=== PATIENT | female | born 1965 | race Caucasian/White ===

== ENCOUNTER 2018-07-03 16:06 | Inpatient (IN) | payer MEDICARE, OTHER ==
[~2018-07-03] VITALS: Ht 170.2 cm; Wt 60.3 kg
[2018-07-03] MEDS ORDERED: FEE PK DOSING 1 MIN EA MC ONE (16:10)
--- NOTE | 2018-07-03 16:10 | NUR ---
PT BIBRA TO ER BED 06. PER REPORT PT WAS FOUND ALTERED, SCRUBBING FLOOR W/ BLEACH. USUALLY SPEAKS CITIZEN OF [place] BUT PER REPORT REVERT TO IRANIAN SPEAKING. PT ALSO HYPERTENSIVE AND TACHY TEACHER LEARNING DISABLED. PER SON HYSTORY OF PSYCHOSIS AND HYPERTENSION. GOWNED AND PLACED ON MONITOR. AWAITING MD KITCHEN.
--- NOTE | 2018-07-03 16:25 | NUR ---
DR MONROE AT BEDSIDE FOR EVAL.
[2018-07-03] MEDS ORDERED: NICARDIPINE IN DEXTROSE,ISO-OS 200 ML IV PRN (16:30)
[2018-07-03 16:56] LABS: BASOPHILS # (AUTO) 0.6 /CMM (0.0-0.2); BASOPHILS % (AUTO) 2.2 % (0.0-2.0); EOSINOPHILS % (AUTO) 0.1 % (0.0-6.0); HEMATOCRIT 49 % (33-45); HEMOGLOBIN 16.3 g/dL (11.5-14.8); LYMPHOCYTES # (AUTO) 1.3 /CMM (0.8-4.8); LYMPHOCYTES % (AUTO) 4.5 % (20.0-44.0); MEAN CORPUSCULAR HGB CONC 34 g/dl (31.0-36.0); MEAN CORPUSCULAR VOLUME 90 fL (82-100); MONOCYTES # (AUTO) 1.3 /CMM (0.1-1.30); MONOCYTES % (AUTO) 4.7 % (2.0-12.0); NEUTROPHILS # (AUTO) 24.9 /CMM (1.8-8.9); NEUTROPHILS % (AUTO) 88.5 % (43.0-81.0); PLATELET COUNT (AUTO) 335 /CMM (150-450); RED BLOOD CELL COUNT(AUTO) 5.41 MIL/uL (4.0-5.2); WHITE BLOOD COUNT (AUTO) 28.1 K/uL (4.3-11.0)
[2018-07-03] MEDS ORDERED: ONDANSETRON HCL/PF 4 MG/2 ML VIAL ONE (16:58)
--- NOTE | 2018-07-03 16:58 | NUR ---
PT TO RADIOLOGY FOR HEAD CT SCAN VIA [facility].
[2018-07-03 16:59] LABS: APPEARANCE,URINE Clear (CLEAR); BILIRUBIN,URINE Negative (NEGATIVE); BLOOD, URINE Small Ery/uL (NEGATIVE); COLOR,URINE Yellow (YELLOW); KETONES,URINE Negative (NEGATIVE); LEUKOCYTE ESTERASE ,URINE Negative (NEGATIVE); NITRITE, URINE Negative (NEGATIVE); PROTEIN,URINE Trace mg/dl (NEGATIVE); UGLUCOSE Negative (NEGATIVE); UROBILINOGEN,URINE 0.2 EU/dL (0.2)
--- NOTE | 2018-07-03 17:04 | NUR ---
PT VOMITED WHILE AT CT SCAN. DR MONROE MADE AWARE. ZOFRAN 4MG IVP GIVEN.
[2018-07-03 17:09] LABS: BACTERIA,URINE None seen /HPF (None Seen); SQUAMOUS EPITHELIAL CELL,UR Few /HPF (None Seen); WBC,URINE 0-2 /HPF (0-3)
[2018-07-03 17:10] LABS: CARBON DIOXIDE 26 mmol/L (21-32); CHLORIDE 96 mmol/L (98-107); CREATININE 1.1 mg/dL (0.6-1.3); GLUCOSE 104 mg/dL (74-106); POTASSIUM 3.7 mmol/L (3.5-5.1); SODIUM SERUM 131 mmol/L (136-145); UREA NITROGEN, BLOOD 12 mg/dL (7-18)
[2018-07-03 17:16] LABS: ALANINE AMINOTRANSFERASE 18 U/L (12-78); ALBUMIN 4.2 g/dL (3.4-5.0); ALKALINE PHOSPHATASE 83 U/L (46-116); ASPARTATE AMINOTRANSFERASE 24 U/L (15-37); BILIRUBIN,DIRECT 0.1 mg/dL (0.0-0.2); BILIRUBIN,TOTAL 0.4 mg/dL (0.2-1.0); TOTAL PROTEIN, SERUM 7.1 g/dL (6.4-8.2)
[2018-07-03 17:18] LABS: TROPONIN I 0.268 ng/mL (0.00-0.056)
[2018-07-03 17:19] LABS: INR 0.95 (0.85-1.15)
[2018-07-03] MEDS ORDERED: ONDANSETRON HCL/PF - ER 4 MG/2 ML VIAL IV ONE (17:30)
[2018-07-03 17:32] LABS: ABG BASE EXCESS -1.3 mmol/L; ABG OXYGEN SATURATION 86.7 % (92.0-98.5); ABG PCO2 34.8 mmHg (35.0-45.0); ABG PH 7.424 (7.350-7.450); ABG PO2 47.5 mmHg (75.0-100.0); COHb 6.2 % (0.5-1.5); MetHb 0.4 % (0.0-1.5); SITE, ABG Right Radial; VENT MODE, BG NASAL CANNULA
[2018-07-03 17:34] LABS: LYMPHOCYTES % (MANUAL) 12 % (16-48); MONOCYTES % (MANUAL) 4 % (0-11.0); NEUTROPHILS % (MANUAL) 84 (42-76)
--- NOTE | 2018-07-03 17:40 | NUR ---
ABG DONE PER MD ORDER AND REPORTED. MD ORDERED PT ON VENTI MASK @ 50%. SPO2 > 94%
[2018-07-03] MEDS ORDERED: NALOXONE PREFILLED SYRINGE 2 MG/2 ML SYRINGE ONE (17:42)
--- NOTE | 2018-07-03 17:42 | NUR ---
NARCAN 1 MG IVP GIVEN ORDERED, INCREASE WAKEFULNESS, TRIED TO GET UP FROM BED, DR MONROE AT BEDSIDE
[2018-07-03] MEDS ORDERED: DEXAMETHASONE SOD PHOSPHATE 10 MG/ML VIAL ONE (17:49)
[2018-07-03] MEDS ORDERED: DEXAMETHASONE SOD PHOSPHATE 10 MG/ML VIAL IV ONE (18:00)
[2018-07-03] MEDS ORDERED: IV NS 0.9% 1,000 ML BAG IV ONE ×2 (18:00→19:30)
[2018-07-03] MEDS ORDERED: VANCOMYCIN 1 GM in IV D5W 250 ML IV ONE (18:00)
[2018-07-03] MEDS ORDERED: CEFTRIAXONE 2 G in IV D5W 50 ML IV ONE (18:00)
--- NOTE | 2018-07-03 18:12 | NUR ---
DR MONROE BACK AT BEDSIDE FOR LUMBAR PUNCTURE. [employer] TO ASSIST.
--- NOTE | 2018-07-03 18:25 | NUR ---
DR MONROE BACK AT BEDSIDE FOR LUMBAR PUNCTURE TO R/O MENINGITIS
[2018-07-03 18:32] LABS: THYROID STIMULATING HORMONE 4.691 uIU/mL (0.358-3.74)
--- NOTE | 2018-07-03 18:42 | NUR ---
CALLED [employer] NEWS OPERATIONS MANAGER WAS PAGED.
--- NOTE | 2018-07-03 18:43 | NUR ---
DR MONROE MADE AWARE OF RECENT B/P CARDENE DRIP D/C'D PER DR MONROE VERBAL ORDER.
[2018-07-03 18:53] LABS: ACETAMINOPHEN < 2 ug/ml (10-30); ALCOHOL, BLOOD < 3 mg/dL (0-0)
[2018-07-03 19:00] LABS: SALICYLATE 5.2 mg/dL (2.8-20.0)
[2018-07-03] MEDS ORDERED: LEVOFLOXACIN 750 MG /D5W 150ML 750 MG in PREMIX 1 EA IV SCH (19:00)
[2018-07-03] MEDS ORDERED: ASPIRIN 300 MG/SUPP.RECT RC ONE ×2 (19:00→19:04)
[2018-07-03] MEDS ORDERED: NALOXONE HCL 0.4 MG/ML AMPUL IV ONE (19:00)
[2018-07-03] MEDS ORDERED: MIDAZOLAM HCL 2 MG/2ML VIAL IV ONE (19:00)
--- NOTE | 2018-07-03 19:04 | NUR ---
PAGED PSYCHIATRIC FOR PANEL - ORDER EXPEDITER DR. DELGADILLO
--- NOTE | 2018-07-03 19:05 | NUR ---
REPORT GIVEN TO CAROLINA GARG FOR MARGARETH.
--- NOTE | 2018-07-03 19:14 | NUR ---
REPORT RECIEVED FROM FRANCHESCA GARG FOR MARGARETH. AWAITING BED ASSIGNMENT.
--- NOTE | 2018-07-03 19:34 | NUR ---
PER DR MONROE, NO INDWELLING EVLEZ CATH
[2018-07-03 19:36] LABS: CSF GLUCOSE 63 mg/dL (40-70); CSF PROTEIN 55.5 mg/dL (15-45)
--- NOTE | 2018-07-03 19:37 | NUR ---
CALLED PHARMACY FOR NADJAUIN
--- NOTE | 2018-07-03 19:52 | NUR ---
PT HELPED ONTO BEDPAN BY EMT. REPORT GIVEN TO [facility] FOR ICU ADMISSION
--- NOTE | 2018-07-03 20:00 | NUR ---
WHEEL SETTER NOTE REPORT RECEIVED FROM ER NURSE JOSE
--- NOTE | 2018-07-03 20:25 | NUR ---
PT TRANSPORTED TO ICU RM 253 IN CRITICAL CONDITION VIA ACLS PROTOCOL WITH FAMILY AT BEDSIDE.
[2018-07-03 20:30] VITALS: BP 193/117
[2018-07-03] MEDS ORDERED: HALOPERIDOL LACTATE INJ 5 MG/ML VIAL IM PRN (20:30)
--- NOTE | 2018-07-03 20:30 | NUR ---
GAS MASK ASSEMBLER INITIAL NOTE RECEIVED PATIENT VIA [place] ANXIOUS, RESTLESS, DISHEVELED IN APPEARANCE. A/OX2, DENIES PAIN OR DISCOMFORT. NO RESPIRATORY DISTRESS NOTED. ON TELE MONITOR SINUS TACH. RESPIRATIONS EVEN AND UNLABORED ON OXYGEN AT 2LPMO2 VIA NC, SPO2 92%, O2 INCREASED TO 5LPM. WITH LEVAQUIN AND VANCOMYCIN RUNNING. ORIENTED PATIENT TO ROOM AND CALL LIGHT SYSTEM, PATIENT VERBALIZED UNDERSTANDING BUT STILL NEEDS FREQUENT REASSURANCE AND REMINDER. AFEBRILE. SIDE RAILS UP AND LOCKED. BED KEPT AT LOWEST POSITION. CALL LIGHT WITHIN EASY REACH. WILL CONTINUE TO MONITOR.
[2018-07-03] MEDS: PANTOPRAZOLE 40 MG VIAL IV SCH (20:36)
--- NOTE | 2018-07-03 20:54 | NUR ---
BLUE SPLIT TRIMMER NOTE NOTED PATIENT WITH URINARY URGENCY, BLADDER DISCOMFORT, NOTED WITH BLADDER DISTENTION, ANXIOUS, RESTLESS. DR. DELGADILLO INFORMED WITH ORDER TO INSERT VELEZ CATHETER. NOTED AND WILL CARRY OUT. WILL CONTINUE TO MONITOR.
[2018-07-03 21:00] VITALS: BP 180/112
--- NOTE | 2018-07-03 21:00 | NUR ---
QUALITY CONTROL HEAD NOTE VELEZ CATHETER INSERTED WITH 800ML OUTPUT. WILL CONTINUE TO MONITOR.
[2018-07-03 21:30] LABS: CALCIUM, SERUM 8.1 mg/dL (8.5-10.1); CREATININE 1.3 mg/dL (0.6-1.3); POTASSIUM 3.5 mmol/L (3.5-5.1)
--- NOTE | 2018-07-03 21:34 | NUR ---
CREDIT RESOLUTION REPRESENTATIVE NOTE PATIENT REMOVING LINES, AND MONITORING CABLES, FREQUENTLY REMINDED NOT TO REMOVE LINE AND CABLES, CLOSELY WATCHED. ATTEMPTING TO GET OUT OF BED DESPITE FREQUENT REMINDERS. PATIENT RESTLESS. PRN HALDOL IM GIVEN. WILL CONTINUE TO MONITOR.
[2018-07-03 21:36] LABS: ALBUMIN 3.8 g/dL (3.4-5.0); BILIRUBIN,DIRECT 0.2 mg/dL (0.0-0.2); BILIRUBIN,TOTAL 0.6 mg/dL (0.2-1.0); TOTAL PROTEIN, SERUM 6.7 g/dL (6.4-8.2)
--- NOTE | 2018-07-03 21:55 | NUR ---
EQUIPMENT HIRE MANAGER NOTE PATIENT REFUSED ABG. RELAYED LACTIC ACID 4.[address] DELGADILLO, STATES HE IS AWARE. WILL CONTINUE TO MONITOR.
--- NOTE | 2018-07-03 21:56 | NUR ---
DIE CASTING SUPERVISOR NOTE SON RALPH AND EX- AT BEDSIDE. SON PROVIDED ALL INFORMATION REGARDING HIS MOTHER. STATES HE WOULD LIKE HIS MOTHER TO BE FULL CODE. SON WAS ABLE TO PROVIDE MEDICATION LIST. PER SON PATIENT LOST HER FATHER 2 TO 3 YEARS AGO AND WAS HOSPITALIZED 2 TO 3 YEARS AGO FOR ATTEMPTING SUICIDE. PER SON PATIENT LIVES ALONE, HE'S NOT SURE IF PATIENT HAS BEEN TAKING HER MEDICATIONS REGULARLY, SON STATES HIS MOTHER HAS PERIODS OF CONSTANT PARANOIA. UPDATED SON ON PATIENTS CURRENT CONDITION, VERBALIZED UNDERSTANDING. WILL CONTINUE TO MONITOR.
[2018-07-03 22:00] VITALS: BP 178/106
--- NOTE | 2018-07-03 22:00 | NUR ---
FUNDER NOTE INFORMED MD PATIENTS MEDICATION LIST ADDED TO MED RECON.
--- NOTE | 2018-07-03 22:03 | NUR ---
PT REFUSE ABG, NO RESP DISTRESS. RN NOTIFIED.
[2018-07-03] MEDS ORDERED: HALO5TAB PO (22:06)
[2018-07-03] MEDS ORDERED: LISI30TA4 PO (22:06)
[2018-07-03] MEDS ORDERED: LISINOPRIL (10MG) 10 MG TABLET PO ONE (22:30)
--- NOTE | 2018-07-03 22:30 | NUR ---
PRINTING WORKER SUPERVISOR NOTE INFORMED MD REGARDING PATIENT ELEVATED BLOOD PRESSURE 166/111 AND HR 123, WITH ORDER FOR LISINOPRIL 10MG PO ONCE. NOTED AND CARRIED OUT. WILL CONTINUE TO MONITOR.
[2018-07-03 23:00] VITALS: BP 176/111
[2018-07-03] MEDS ORDERED: IV NS 0.9% 250 ML IV PRN (23:00)
[2018-07-03 23:31] VITALS: BP 160/110
[2018-07-04] VITALS (51 sets, daily range): BP systolic 53–190; BP diastolic 30–124
--- NOTE | 2018-07-04 00:10 | NUR ---
MEASUREMENT OPERATOR NOTE INFORMED MD REGARDING PATIENT HR 140, BP 160/110. PATIENT PARANOID, ANXIOUS, RESTLESS, MUMBLING TO WORDS TO SELF. LISINOPRIL AND HALDOL WAS GIVEN EARLIER WITH MINIMAL AFFECT. NEW ORDER RECEIVED TO START IVF NS AT 125ML/HR. WILL CONTINUE TO MONITOR.
[2018-07-04] MEDS ORDERED: IV NS 0.9% 1,000 ML IV PRN (00:30)
--- NOTE | 2018-07-04 01:00 | NUR ---
WEIGHT CONTROL ENGINEER NOTE PATIENT MORE CALM, ATTEMPTING TO GO TO SLEEP. SITTER AT BEDSIDE. WILL CONTINUE TO MONITOR.
[2018-07-04] MEDS: LORAZEPAM INJ 2 MG/ML VIAL IV PRN ×4 (01:02→22:53)
--- NOTE | 2018-07-04 01:44 | NUR ---
VULCANIZING MACHINE OPERATOR NOTE RELAYED CRITICAL TROPONIN LEVEL 2.[address] DELGADILLO WITH NEW ORDERS TO START ON HEPARIN GTT ACS PROTOCOL. NOTED. WILL CARRY OUT. WILL CONTINUE TO MONITOR.
[2018-07-04] MEDS ORDERED: HEPARIN INFUSION/D5W 500 ML IV PRN (02:00)
[2018-07-04] MEDS ORDERED: HEPARIN INFUSION/D5W 500 ML IV ONE (02:05)
[2018-07-04] MEDS ORDERED: HEPARIN SODIUM, PORCINE 5000 UNITS/1 ML VIAL IV ONE (02:30)
[2018-07-04 04:12] LABS: BASOPHILS # (AUTO) 0.1 /CMM (0.0-0.2); BASOPHILS % (AUTO) 0.3 % (0.0-2.0); HEMATOCRIT 49 % (33-45); LYMPHOCYTES # (AUTO) 0.5 /CMM (0.8-4.8); LYMPHOCYTES % (AUTO) 2.5 % (20.0-44.0); MEAN CORPUSCULAR HGB CONC 32 g/dl (31.0-36.0); MEAN CORPUSCULAR VOLUME 93 fL (82-100); MONOCYTES # (AUTO) 0.4 /CMM (0.1-1.30); MONOCYTES % (AUTO) 1.8 % (2.0-12.0); NEUTROPHILS # (AUTO) 20.5 /CMM (1.8-8.9); NEUTROPHILS % (AUTO) 95.4 % (43.0-81.0); PLATELET COUNT (AUTO) 329 /CMM (150-450); RDW COEFFICIENT OF VARIATION 14.3 (11.5-15.0); RED BLOOD CELL COUNT(AUTO) 5.31 MIL/uL (4.0-5.2); WHITE BLOOD COUNT (AUTO) 21.5 K/uL (4.3-11.0)
[2018-07-04 04:32] LABS: ALBUMIN 3.9 g/dL (3.4-5.0); BILIRUBIN,TOTAL 0.8 mg/dL (0.2-1.0); CALCIUM, SERUM 8.7 mg/dL (8.5-10.1); POTASSIUM 4.7 mmol/L (3.5-5.1)
[2018-07-04 04:37] LABS: TROPONIN I 2.48 ng/mL (0.00-0.056)
[2018-07-04 05:16] LABS: BAND % (MANUAL) 7 % (0.0-5.0); LYMPHOCYTES % (MANUAL) 5 % (16-48); MONOCYTES % (MANUAL) 3 % (0-11.0); NEUTROPHILS % (MANUAL) 85 (42-76)
[2018-07-04] MEDS: PIPERACILLIN /TAZOBACTAM 4.5 G in IV D5W 50 ML IV SCH ×6 (05:48→23:47)
--- NOTE | 2018-07-04 06:36 | NUR ---
INTERNATIONAL SPECIALIST CLOSING NOTES PATIENT AWAKE, SITTER AT BEDSIDE. NO RESPIRATORY DISTRESS NOTED, ON ROOM AIR SPO2 96%, RAMBLING WORDS. NO C/O PAIN OR DISCOMFORT. F/C PATENT, INTACT, DRAINING BY GRAVITY. IVF RUNNING NS AT 125ML/HR AND HEPARIN DRIP AT 850 UNITS/HR. ALL DUE MEDS GIVEN. ISOLATION PRECAUTIONS OBSERVED. HOB ELEVATED. SIDE RAILS UP AND LOCKED. BED KEPT AT LOWEST POSITION. CALL LIGHT KEPT WITHIN EASY REACH. WILL ENDORSE CONTINUITY OF CARE TO AM NURSE.
[2018-07-04] MEDS: CARVEDILOL 12.5 MG TABLET PO SCH ×3 (07:34→21:25)
--- NOTE | 2018-07-04 10:00 | NUR ---
AWAITING FOR SON ABELARDO TO SIGNS CONSENT AND CLEAR MEDICAL HISTORY
--- NOTE | 2018-07-04 10:15 | NUR ---
Social service consult requested by Dr. Moss regarding pt. residing alone. Pt. is a 53 year old female who was admitted to [facility] ICU for acute respiratory distress. Per H&P report, pt. has a psychiatric diagnosis of Depression and Advance Stage Paranoia. Pt's. niece Chica was bedside. SW attempted to assess pt., however pt. did not respond to SW when SW said pt's name. Pt. had her eyes closed and was kept mumbling words that were incoherent. SW to reassess pt. when she is more alert and oriented. SW updated ANIRUDH Bob.
[2018-07-04] MEDS: VANCOMYCIN 1 GM in IV D5W 250 ML IV SCH ×2 (10:39→19:37)
[2018-07-04] MEDS: ATORVASTATIN 10 MG TABLET PO SCH (10:40)
[2018-07-04] MEDS: FUROSEMIDE 40 MG/4 ML VIAL IV SCH ×3 (10:40→15:10)
[2018-07-04] MEDS: PANTOPRAZOLE 40 MG VIAL IV SCH (10:40)
[2018-07-04] MEDS: ASPIRIN 81 MG TAB.CHEW PO SCH (10:40)
[2018-07-04] MEDS: ENOXAPARIN SODIUM 60 MG/0.6 ML DISP.SYRIN SQ SCH ×3 (10:41→21:00)
[2018-07-04 11:29] LABS: CREATINE KINASE, TOTAL 381 U/L (26-192)
--- NOTE | 2018-07-04 12:05 | NUR ---
PER ADARSH SALDANA, OK TO HOLD LOVENOX TILL MRI RESULTS
--- NOTE | 2018-07-04 15:04 | NUR ---
1400- 1450 PATIENT IN MRI
--- NOTE | 2018-07-04 15:09 | NUR ---
PER ADARSH SALDANA TOURIST INFORMATION ASSISTANT- PSYCH CONSULT
--- NOTE | 2018-07-04 17:00 | NUR ---
Received patient awake,alert,confused,follows simple commands,restless,talking incoherently,with speech sometimes is garbled,hallucinating at times.not in any distress,afebrile.With a sitter at bedside,patient very restless,tries to get out of bed. 2100 Family at bedside,supportive of patient. 0 Remains very restless ,trying to get out of bed,very confuse ,hallucinating., uncooperative at times.
--- NOTE | 2018-07-04 17:23 | NUR ---
LOVENOX NOT ADMINISTERED PER ADARSH SALDANA. PER ADARSH, SHE IS AWAITING FOR CLEARANCE FROM DR PRITCHARD SINCE MRI IS NOT DONE. PER ADARSH SALDANA SKATE MAKER, SHE IS TO CONTACT THE UNIT AND NOTIFY US REGARDING DR PRITCHARD'S DECISION NO FACIAL GRIMACING NOTED. PATIENT DENYING CHEST PAIN
--- NOTE | 2018-07-04 17:27 | NUR ---
IV LASIX [address] PER NOW [address] PRITCHARD, FOR THIRD DOSE OF LASIX
[2018-07-04] MEDS ORDERED: FUROSEMIDE 40 MG/4 ML VIAL IV ONE (17:30)
--- NOTE | 2018-07-04 17:45 | NUR ---
CLEAR WITH NEUROLOGY IF OK TO GIVE ANTICOAGULANTS. HOLD LOVENOX FOR NOW
[2018-07-04] MEDS: LACTOBACILLUS RHAMNOSUS GG 1 EACH CAP.SPRINK PO SCH (17:58)
[2018-07-05] VITALS (53 sets, daily range): BP systolic 76–153; BP diastolic 41–120
--- NOTE | 2018-07-05 00:45 | NUR ---
BPlow in the 80's- 70's ,patient awake,alert.messaged Dr. Moss,referred about the low BP,ordered 500 ml IV bolus. Patient remains restless,confuse and incoherent.Maintained on 1:1 watch.
[2018-07-05] MEDS ORDERED: IV NS 0.9% 500 ML IV ONE (01:00)
--- NOTE | 2018-07-05 04:00 | NUR ---
BNP still low,spoke to ,,will start if fluid NSS at 80 ml/hr. 0600 Remains confusedand restless.For Pschye consult today.Follow up with Neuro if can give Lovenox pending MRI today
[2018-07-05 04:25] LABS: BASOPHILS # (AUTO) 0.8 /CMM (0.0-0.2); BASOPHILS % (AUTO) 4.6 % (0.0-2.0); EOSINOPHILS % (AUTO) 0.3 % (0.0-6.0); HEMATOCRIT 52 % (33-45); HEMOGLOBIN 17.8 g/dL (11.5-14.8); LYMPHOCYTES # (AUTO) 2.4 /CMM (0.8-4.8); LYMPHOCYTES % (AUTO) 14.2 % (20.0-44.0); MEAN CORPUSCULAR HGB CONC 34 g/dl (31.0-36.0); MEAN CORPUSCULAR VOLUME 90 fL (82-100); MONOCYTES # (AUTO) 1.1 /CMM (0.1-1.30); MONOCYTES % (AUTO) 6.5 % (2.0-12.0); NEUTROPHILS # (AUTO) 12.7 /CMM (1.8-8.9); NEUTROPHILS % (AUTO) 74.4 % (43.0-81.0); PLATELET COUNT (AUTO) 321 /CMM (150-450); RDW COEFFICIENT OF VARIATION 13.6 (11.5-15.0); RED BLOOD CELL COUNT(AUTO) 5.83 MIL/uL (4.0-5.2); WHITE BLOOD COUNT (AUTO) 17.1 K/uL (4.3-11.0)
[2018-07-05] MEDS ORDERED: IV NS 0.9% 1,000 ML BAG IV SCH (04:30)
[2018-07-05 04:47] LABS: ALBUMIN 3.7 g/dL (3.4-5.0); BILIRUBIN,TOTAL 0.8 mg/dL (0.2-1.0); MAGNESIUM 1.7 mg/dL (1.8-2.4); PHOSPHORUS 4.5 mg/dL (2.5-4.9); POTASSIUM 3.6 mmol/L (3.5-5.1); TOTAL PROTEIN, SERUM 6.9 g/dL (6.4-8.2)
[2018-07-05 04:59] LABS: TROPONIN I 1.294 ng/mL (0.00-0.056)
[2018-07-05] MEDS: IV NS 0.9% 1,000 ML IV PRN ×2 (05:23→17:23)
[2018-07-05] MEDS: PIPERACILLIN /TAZOBACTAM 4.5 G in IV D5W 50 ML IV SCH (05:24)
--- NOTE | 2018-07-05 07:10 | NUR ---
received patient a/ox3. denies sob, difficulty breathing or pain at this time. ivf running per order. fernandez cath in place draining to gravity. sitter at bedside. patient calm and cooperative at this time. safety, skin, aspiration precautions in place. tele nsr. patient bp labile will continue to monitor.
[2018-07-05] MEDS: VANCOMYCIN 1 GM in IV D5W 250 ML IV SCH (08:00)
[2018-07-05] MEDS ORDERED: ENOXAPARIN SODIUM 40 MG/0.4 ML DISP.SYRIN SQ SCH (08:30)
--- NOTE | 2018-07-05 08:30 | NUR ---
DR PRITCHARD AT BEDSIDE. MD AWARE OF PATIENT LABILE BP. PER MD GIVE LOVENOX.
[2018-07-05] MEDS: LACTOBACILLUS RHAMNOSUS GG 1 EACH CAP.SPRINK PO SCH ×2 (08:41→17:24)
[2018-07-05] MEDS: PANTOPRAZOLE 40 MG VIAL IV SCH (08:41)
[2018-07-05] MEDS: ASPIRIN 81 MG TAB.CHEW PO SCH (08:41)
[2018-07-05] MEDS: ATORVASTATIN 10 MG TABLET PO SCH (08:41)
[2018-07-05] MEDS: CARVEDILOL 12.5 MG TABLET PO SCH ×2 (09:00→21:06)
[2018-07-05] MEDS: ENOXAPARIN SODIUM 30 MG/0.3 ML DISP.SYRIN SQ SCH (09:02)
[2018-07-05] MEDS ORDERED: Magnesium 1GM/D5W 100ML PREMIX 100 ML IV SCH (09:30)
--- NOTE | 2018-07-05 09:30 | NUR ---
francisca ogden at bedside. updated on patient condition, labs, vs. currently a/ox3. per francisca continue with another attempt at mri brain with and without. melvi aware of patient cr 2.0 today.
[2018-07-05] MEDS: PIPERACILLIN /TAZOBACTAM 2.25 G in IV D5W 50 ML IV SCH ×3 (11:06→23:29)
[2018-07-05] MEDS ORDERED: GADODIAMIDE 5 MMOL/10 ML VIAL ONE (11:14)
[2018-07-05] MEDS ORDERED: GADODIAMIDE 2.5 MMOL/5 ML VIAL ONE (11:14)
--- NOTE | 2018-07-05 15:14 | NUR ---
per francisca ogden ok to order nicotine patch 14 daily ok give now. patient agreeable at this time for mri. per tech they can have mri done wilbert
[2018-07-05] MEDS: LORAZEPAM INJ 2 MG/ML VIAL IV PRN (15:51)
[2018-07-05] MEDS: NICOTINE PATCH (14MG) 14 MG PATCH.TD24 TD SCH (17:24)
--- NOTE | 2018-07-05 18:47 | NUR ---
ALL DUE MEDS GIVEN AND ALL NEEDS MET. FAMILY AND SITTER AT BEDSIDE. PATIENT CALM AND COOPERATIVE TODAY. IV SITES C/D/I/P AND IVF RUNNING PER MD ORDER. PATIENT VELEZ CATH IN PLACE DRAINING TO GRAVITY. SAFETY, SKIN, AND ASPIRATION PRECAUTIONS IN PLACE AND MONITORED THROUGHOUT THE DAY. CARE WILL BE ENDORSED TO RN FOR MARGARETH. PATIENT STABLE AT THIS TIME.
--- NOTE | 2018-07-05 19:30 | NUR ---
PIPE ASSEMBLY WORKER RCD PT W/DX PNA AND SEPSIS; PT SLEEPING BUT A/O x4 AND ABLE TO FOLLOW COMMANDS; INDEPENDENT WITH ADLs. NSR ON MONITOR. ON ROOM AIR WITH DIMINISHED LUNG SOUNDS ON RLL. VELEZ CATH DRAINING ADEQUATE AMOUNT OF YELLOW URINE. NS @ 100 ML/HR VIA RIGHT HAND 20 G. PT DENIES PAIN. CONTINUE TO MONITOR.
--- NOTE | 2018-07-05 20:15 | NUR ---
ACTUARIAL DIRECTORMEDICAL AFFAIRS SPECIALIST AT BEDSIDE; UPDATED WITH PLAN OF CARE.
[2018-07-05] MEDS ORDERED: VANCOMYCIN 0.75 GM in IV D5W 250 ML IV SCH (21:00)
[2018-07-05] MEDS: OLANZAPINE 5 MG TABLET PO SCH (21:06)
[2018-07-06] VITALS (41 sets, daily range): BP systolic 94–177; BP diastolic 55–117
[2018-07-06 04:38] LABS: BASOPHILS # (AUTO) 0.1 /CMM (0.0-0.2); BASOPHILS % (AUTO) 0.6 % (0.0-2.0); EOSINOPHILS % (AUTO) 1.9 % (0.0-6.0); HEMATOCRIT 45 % (33-45); HEMOGLOBIN 14.9 g/dL (11.5-14.8); LYMPHOCYTES # (AUTO) 1.3 /CMM (0.8-4.8); LYMPHOCYTES % (AUTO) 13.1 % (20.0-44.0); MEAN CORPUSCULAR HGB CONC 33 g/dl (31.0-36.0); MEAN CORPUSCULAR VOLUME 91 fL (82-100); MONOCYTES # (AUTO) 0.5 /CMM (0.1-1.30); MONOCYTES % (AUTO) 5.1 % (2.0-12.0); NEUTROPHILS # (AUTO) 7.9 /CMM (1.8-8.9); NEUTROPHILS % (AUTO) 79.3 % (43.0-81.0); PLATELET COUNT (AUTO) 264 /CMM (150-450); RDW COEFFICIENT OF VARIATION 13.6 (11.5-15.0); RED BLOOD CELL COUNT(AUTO) 4.92 MIL/uL (4.0-5.2)
[2018-07-06] MEDS: PIPERACILLIN /TAZOBACTAM 2.25 G in IV D5W 50 ML IV SCH ×2 (05:00→12:50)
[2018-07-06] MEDS: IV NS 0.9% 1,000 ML IV PRN ×2 (05:01→16:22)
[2018-07-06 05:07] LABS: CALCIUM, SERUM 7.7 mg/dL (8.5-10.1); CREATININE 1.1 mg/dL (0.6-1.3); MAGNESIUM 1.8 mg/dL (1.8-2.4); PHOSPHORUS 3.6 mg/dL (2.5-4.9); POTASSIUM 3.4 mmol/L (3.5-5.1)
--- NOTE | 2018-07-06 07:00 | NUR ---
RECEIVED CARE OF PATIENT A/OX3 REORIENTATION PROVIDED PATIENT SLIGHTLY FORGETFUL AT TIMES. SITTER AT SIDE AND PATIENT CALM AND COOPERATIVE. IVF RUNNING PER MD ORDER. VELEZ CATH IN PLACE DRAINING TO GRAVITY. VS STABLE AT THIS TIME. SAFETY, SKIN, ASPIRATION PRECAUTIONS IN PLACE AND WILL MONITOR.
--- NOTE | 2018-07-06 08:04 | NUR ---
DR PRITCHARD AT BEDSIDE. PER MD RUSSO VELEZ CATH. PATIENT CONTINENT. VELEZ TIP INTACT. NO COMPLICATIONS NOTED.
[2018-07-06] MEDS: PANTOPRAZOLE 40 MG TABLET.DR PO SCH (08:22)
[2018-07-06] MEDS: ESCITALOPRAM OXALATE (10 MG) 10 MG TABLET PO SCH (08:22)
[2018-07-06] MEDS: NICOTINE PATCH (14MG) 14 MG PATCH.TD24 TD SCH (08:22)
[2018-07-06] MEDS: ASPIRIN 81 MG TAB.CHEW PO SCH (08:22)
[2018-07-06] MEDS: CARVEDILOL 12.5 MG TABLET PO SCH ×2 (08:22→20:39)
[2018-07-06] MEDS: LACTOBACILLUS RHAMNOSUS GG 1 EACH CAP.SPRINK PO SCH ×2 (08:22→16:22)
[2018-07-06] MEDS: ATORVASTATIN 10 MG TABLET PO SCH (08:22)
[2018-07-06] MEDS: ENOXAPARIN SODIUM 30 MG/0.3 ML DISP.SYRIN SQ SCH (08:26)
[2018-07-06] MEDS ORDERED: POTASSIUM CHLORIDE 20 MEQ POWDER PACKET PO SCH (11:00)
--- NOTE | 2018-07-06 12:57 | NUR ---
MESSAGE TO DR PRITCHARD. PATIENT HR STILL 70'S-80'S.
[2018-07-06] MEDS ORDERED: METOPROLOL TARTRATE INJ 5 MG/5 ML AMPUL ONE ×4 (13:04→13:40)
--- NOTE | 2018-07-06 13:15 | NUR ---
PATIENT TAKEN TO CTA IN STABLE CONDITION
[2018-07-06] MEDS ORDERED: CT SWABBABLE VALVE TRANS SET 1 EA INFUS.SET MC ONE (13:23)
[2018-07-06] MEDS ORDERED: IV NS 0.9% 250 ML IV ONE (13:23)
[2018-07-06] MEDS ORDERED: IOHEXOL-350 100 ML VIAL IV ONE (13:23)
--- NOTE | 2018-07-06 14:00 | NUR ---
PATIENT RETURNED FROM CTA IN STABLE CONDITION. VSS
[2018-07-06] MEDS: AZITHROMYCIN 250 MG TABLET PO SCH (15:08)
--- NOTE | 2018-07-06 15:36 | NUR ---
message to dr canela to notify patient hypertensive. per md order lisinopril 20mg bid po. and per md lu to advance diet.
[2018-07-06] MEDS: CEFTRIAXONE 1 G in IV D5W 50 ML IV SCH (16:22)
[2018-07-06] MEDS: LISINOPRIL (20MG) 20 MG TABLET PO SCH (16:44)
--- NOTE | 2018-07-06 18:56 | NUR ---
PATIENT STABLE. BP ELEVATED AND DR PRITCHARD ORDERS BEING CARRIED OUT. PATIENT IV SITES C/D/I/P IVF RUNNING PER MD ORDER. PATIENT IS HAVING LOOSE STOOL NOW. WILL INITIATE PROTOCOL WHEN APPLICABLE PER PROTOCOL. PATIENT TOLERATED DIET FOR DINNER WELL. A/OX3 BACK TO BASELINE PER FAMILY. SAFETY, SKIN, AND ASPIRATION PRECAUTIONS MONITORED THOUGHT DAY. WILL ENDORSE CARE TO RN FOR MARGARETH
--- NOTE | 2018-07-06 20:00 | NUR ---
RN INITIAL NOTES RECEIVED PATIENT IN BED, A/OX3. SITTER AT SIDE AND PATIENT CALM AND COOPERATIVE. IVF RUNNING PER ORDER. ALL SAFETY, PRECAUTIONS IN PLACE. WILL MONITOR CONT TO MONITOR.
[2018-07-06] MEDS: OLANZAPINE 5 MG TABLET PO SCH (21:05)
[2018-07-07] VITALS (33 sets, daily range): BP systolic 103–207; BP diastolic 58–135
[2018-07-07 05:05] LABS: CALCIUM, SERUM 8.4 mg/dL (8.5-10.1); CREATININE 0.8 mg/dL (0.6-1.3); MAGNESIUM 1.3 mg/dL (1.8-2.4); POTASSIUM 3.6 mmol/L (3.5-5.1)
[2018-07-07 05:16] LABS: BASOPHILS # (AUTO) 0.1 /CMM (0.0-0.2); BASOPHILS % (AUTO) 0.5 % (0.0-2.0); EOSINOPHILS % (AUTO) 2.2 % (0.0-6.0); HEMATOCRIT 42 % (33-45); HEMOGLOBIN 13.9 g/dL (11.5-14.8); LYMPHOCYTES # (AUTO) 1.1 /CMM (0.8-4.8); LYMPHOCYTES % (AUTO) 10.5 % (20.0-44.0); MEAN CORPUSCULAR HGB CONC 33 g/dl (31.0-36.0); MEAN CORPUSCULAR VOLUME 93 fL (82-100); MONOCYTES # (AUTO) 0.5 /CMM (0.1-1.30); MONOCYTES % (AUTO) 4.5 % (2.0-12.0); NEUTROPHILS # (AUTO) 8.9 /CMM (1.8-8.9); NEUTROPHILS % (AUTO) 82.3 % (43.0-81.0); PLATELET COUNT (AUTO) 244 /CMM (150-450); RDW COEFFICIENT OF VARIATION 14.1 (11.5-15.0); RED BLOOD CELL COUNT(AUTO) 4.51 MIL/uL (4.0-5.2); WHITE BLOOD COUNT (AUTO) 10.9 K/uL (4.3-11.0)
--- NOTE | 2018-07-07 06:16 | NUR ---
RN CLOSING NOTES PATIENT ASLEEP, SITTER AT BEDSIDE. NO RESPIRATORY DISTRESS NOTED, NO C/O PAIN OR DISCOMFORT. IVF RUNNING NS AT 100 ML/HR. ALL DUE MEDS GIVEN. HOB ELEVATED. SIDE RAILS UP AND LOCKED. BED KEPT AT LOWEST POSITION. CALL LIGHT KEPT WITHIN EASY REACH. WILL ENDORSE CONTINUITY OF CARE TO AM NURSE.
--- NOTE | 2018-07-07 07:30 | NUR ---
INITIAL PATIENT AWAKE ALERT AND ORIENTED X 4., SITTER AT BEDSIDE. NO RESPIRATORY DISTRESS NOTED, NO C/O PAIN OR DISCOMFORT. IVF RUNNING NS AT TKO. PT STATES SHE IS FEELING BETTER DOES NOT WANT TO HURT HER SELF. HOB ELEVATED. SIDE RAILS X 3 UP AND LOCKED. BED KEPT AT LOWEST POSITION. CALL LIGHT KEPT WITHIN EASY REACH. WILL CONTINUE TO MONITOR.
[2018-07-07] MEDS: ESCITALOPRAM OXALATE (10 MG) 10 MG TABLET PO SCH (09:05)
[2018-07-07] MEDS: ASPIRIN 81 MG TAB.CHEW PO SCH (09:06)
[2018-07-07] MEDS: LACTOBACILLUS RHAMNOSUS GG 1 EACH CAP.SPRINK PO SCH ×2 (09:06→16:13)
[2018-07-07] MEDS: CARVEDILOL 12.5 MG TABLET PO SCH ×2 (09:06→21:11)
[2018-07-07] MEDS: ENOXAPARIN SODIUM 30 MG/0.3 ML DISP.SYRIN SQ SCH (09:08)
[2018-07-07] MEDS: LISINOPRIL (20MG) 20 MG TABLET PO SCH ×2 (09:20→16:13)
[2018-07-07] MEDS: PANTOPRAZOLE 40 MG TABLET.DR PO SCH (09:21)
[2018-07-07] MEDS: NICOTINE PATCH (14MG) 14 MG PATCH.TD24 TD SCH (09:21)
[2018-07-07 09:42] LABS: CHOLESTEROL 162 mg/dL (<200); HDL CHOLESTEROL 30 mg/dL (40-60); LDL 113 mg/dL (0-99); TRIGLYCERIDES 172 mg/dL (30-150)
[2018-07-07] MEDS: Magnesium 1GM/D5W 100ML PREMIX 100 ML IV SCH ×4 (10:21→14:43)
[2018-07-07] MEDS ORDERED: K PHOS NEUTRAL 250 MG TABLET PO ONE (10:30)
[2018-07-07] MEDS: AZITHROMYCIN 250 MG TABLET PO SCH (14:43)
[2018-07-07] MEDS: CEFTRIAXONE 1 G in IV D5W 50 ML IV SCH (16:10)
--- NOTE | 2018-07-07 17:53 | NUR ---
PRITI PT TRANSFERRED TO [facility]-2 RN REPORT GIVEN TO OSCITO BY IN STORE BANKER TOLERATED WELL TRANSPORT COMPLETED SAFELY.
--- NOTE | 2018-07-07 17:59 | NUR ---
PRINCIPAL RESEARCH ECONOMISTWARDROBE MISTRESS NOTES [id number] PT FROM ICU NURSE IN STABLE CONDITION. PT IS A/O X4. NO SOB OR ACUTE SIGNS OF DISTRESS NOTED, BREATHING IS EVEN AND UNLABORED. PT ON RA AND SATING WELL. SHE DENIES ANY PAIN AT THIS TIME. SHE FURTHER DENIES ANY SUICIDAL OR HOMICIDAL IDEATIONS. IV TO LEFT HAND NOTED TO BE PATENT AND INTACT. NO REDNESS OR SIGNS OF INFILTRATION NOTED. PT CURRENTLY SR ON THE TELE MONITOR. SHE WAS ORIENTED TO ROOM AND USE OF CALL LIGHT. FAMILY AND 1:1 SITTER AT BEDSIDE. WILL CONTINUE TO MONITOR
--- NOTE | 2018-07-07 18:49 | NUR ---
LIGHTNING PROTECTION INSTALLER CLOSING NOTES PT REMAINS STABLE. ALL NEEDS ATTENDED TO AND MET. SHE REMAINS SR-SINUS TACH ON THE TELE MONITOR. IV REMAINS PATENT AND INTACT. SAFETY MEASURES REMAIN IN PLACE. WILL ENDORSE TO NIGHTSHIFT NURSE FOR MARGARETH
--- NOTE | 2018-07-07 19:30 | NUR ---
RN OPENING NOTES PT AWAKE AND ALERT X4. PT IN ROOM AIR, TOLERATING WELL, NO SIGNS OF DISTRESS, NO LABORED BREATHING. CARDIAC MONITORING IN PLACED, SHOWING SINUS RHYTHM AT 96BPM. SKIN IS INTACT. IV ACCESS ON THE LEFT HAND 20G IS PATENT AND INTACT. DENIES ANY PAIN AT THIS MOMENT. PT DENIES ANY SUICIDAL IDEATION AT THIS TIME. WILL CONTINUE TO MONITOR AND ASSESS PATIENT.
[2018-07-07] MEDS: OLANZAPINE 5 MG TABLET PO SCH (21:11)
--- NOTE | 2018-07-07 23:00 | NUR ---
RN NOTES PT AMBULATING IN THE HALLWAY WITH SITTER, NO SIGNS OF LABORED BREATHING WITH ACTIVITY. GAIT IS STEADY.
--- NOTE | 2018-07-08 06:16 | NUR ---
RN CLOSING NOTES PT ASLEEP IN BED, LAYING COMFORTABLY. PT IN ROOM AIR, TOLERATING WELL, NO SIGNS OF DISTRESS, NO LABORED BREATHING. CARDIAC MONITORING IN PLACED, SHOWING SINUS RHYTHM AT 79BPM. SKIN IS INTACT. IV ACCESS ON THE LEFT HAND 20G IS PATENT AND INTACT. DOES NOT SHOW ANY PAIN AT THIS MOMENT. SITTER AT BEDSIDE. WILL ENDORSE CONTINUITY OF CARE TO THE ONCOMING RN.
[2018-07-08 06:47] LABS: BASOPHILS % (AUTO) 0.3 % (0.0-2.0); HEMATOCRIT 40 % (33-45); HEMOGLOBIN 13.5 g/dL (11.5-14.8); LYMPHOCYTES # (AUTO) 1.5 /CMM (0.8-4.8); LYMPHOCYTES % (AUTO) 16.1 % (20.0-44.0); MEAN CORPUSCULAR HGB CONC 34 g/dl (31.0-36.0); MEAN CORPUSCULAR VOLUME 93 fL (82-100); MONOCYTES # (AUTO) 0.7 /CMM (0.1-1.30); MONOCYTES % (AUTO) 7.8 % (2.0-12.0); NEUTROPHILS # (AUTO) 6.9 /CMM (1.8-8.9); NEUTROPHILS % (AUTO) 72.8 % (43.0-81.0); PLATELET COUNT (AUTO) 269 /CMM (150-450); RDW COEFFICIENT OF VARIATION 13.7 (11.5-15.0); RED BLOOD CELL COUNT(AUTO) 4.34 MIL/uL (4.0-5.2); WHITE BLOOD COUNT (AUTO) 9.5 K/uL (4.3-11.0)
--- NOTE | 2018-07-08 08:06 | NUR ---
CRUMB PACKER OPENING NOTES RECEIVED PT FROM NIGHTSHIFT NURSE IN STABLE CONDITION. PT IS A/O X4. NO SOB OR ACUTE SIGNS OF DISTRESS NOTED, BREATHING IS EVEN AND UNLABORED. PT ON RA AND SATING WELL. SHE DENIES ANY PAIN AT THIS TIME. SHE CONTINUES TO DENY ANY SUICIDAL OR HOMICIDAL IDEATIONS. IV TO LEFT HAND NOTED TO BE PATENT AND INTACT. NO REDNESS OR SIGNS OF INFILTRATION NOTED. PT CURRENTLY SR ON THE TELE MONITOR WITH A HR OF 85. BED IN LOW LOCKED POSITION, SIDE RAILS UP X2, CALL LIGHT WITHIN REACH. 1:1 SITTER AT BEDSIDE. WILL CONTINUE TO MONITOR
--- NOTE | 2018-07-08 08:23 | NUR ---
FUEL ISLAND ATTENDANT NOTES: LOVENOX ORDER MILITARY LOGISTICS SPECIALIST SHANA WAS NOTIFIED OF CONTINUED LOVENOX ORDER IT WAS INDICATED TO D/C IT IN SOME PHYSICIAN NOTES. PER MILITARY LOGISTICS SPECIALIST "PLEASE D/C THE MEDICATION"
[2018-07-08] MEDS: NICOTINE PATCH (14MG) 14 MG PATCH.TD24 TD SCH (08:39)
[2018-07-08] MEDS: LACTOBACILLUS RHAMNOSUS GG 1 EACH CAP.SPRINK PO SCH (08:39)
[2018-07-08] MEDS: ASPIRIN 81 MG TAB.CHEW PO SCH (08:39)
[2018-07-08] MEDS: PANTOPRAZOLE 40 MG TABLET.DR PO SCH (08:39)
[2018-07-08] MEDS: ESCITALOPRAM OXALATE (10 MG) 10 MG TABLET PO SCH (08:40)
[2018-07-08 08:41] VITALS: BP 135/87
[2018-07-08] MEDS: CARVEDILOL 12.5 MG TABLET PO SCH (08:41)
[2018-07-08] MEDS: LISINOPRIL (20MG) 20 MG TABLET PO SCH (08:41)
[2018-07-08 08:50] LABS: CALCIUM, SERUM 8.1 mg/dL (8.5-10.1); CREATININE 0.6 mg/dL (0.6-1.3); MAGNESIUM 1.7 mg/dL (1.8-2.4); POTASSIUM 3.5 mmol/L (3.5-5.1)
[2018-07-08] MEDS: Magnesium 1GM/D5W 100ML PREMIX 100 ML IV SCH ×2 (10:30→11:48)
[2018-07-08] MEDS ORDERED: CARV12.52 PO (11:32)
[2018-07-08] MEDS ORDERED: ESCI10TA PO (11:32)
[2018-07-08] MEDS ORDERED: OLAN5TAB3 PO (11:32)
--- NOTE | 2018-07-08 15:37 | NUR ---
MARINE SERVICES TECHNICIANCLINICAL RESEARCH TECH NOTES PT WAS DISCHARGED FROM FACILITY IN STABLE CONDITION. ALL NEEDS WERE MET DURING SHIFT AND ORDERS CARRIED OUT ACCORDINGLY. ALL DUE MEDS GIVEN. SHE DENIED ANY SUICIDAL OR HOMICIDAL IDEATION PRIOR TO DISCHARGE. IV WAS SUCCESSFULLY REMOVED WITH NO COMPLICATIONS. D/C PAPERWORK AND PRESCRIPTION REVIEWED WITH PT AND FAMILY. PT PROVIDED WITH COPIES OF ALL PAPERWORK. SHE WAS SAFELY ESCORTED TO THE MAIN LOBBY BY THE [employer] CHIP PROCESSING SUPERVISOR AND LEFT VIA PRIVATE VEHICLE
== END 2018-07-08 14:54 | disposition home or self-care (01) | DRG 917 ==
LOC: ER 16:09 → ICU 19:42 → TELE 07-07 17:30 → MED 07-08 10:42
PROVIDERS: ADMIT Internal Medicine; ATTEND Internal Medicine
DX: T39.392A Poisoning by other nonsteroidal anti-inflammatory drugs [NSAID], intentional self-harm, initial encounter (principal); A41.9 Sepsis, unspecified organism; J18.9 Pneumonia, unspecified organism; R65.21 Severe sepsis with septic shock; I21.A1 Myocardial infarction type 2; J96.01 Acute respiratory failure with hypoxia; I21.4 Non-ST elevation (NSTEMI) myocardial infarction; R65.20 Severe sepsis without septic shock; F33.3 Major depressive disorder, recurrent, severe with psychotic symptoms; E87.2 Acidosis; N17.9 Acute kidney failure, unspecified; G93.1 Anoxic brain damage, not elsewhere classified; T49.2X2A Poisoning by local astringents and local detergents, intentional self-harm, initial encounter; Z91.5 Personal history of self-harm; F10.10 Alcohol abuse, uncomplicated; I50.9 Heart failure, unspecified; I11.0 Hypertensive heart disease with heart failure; I34.0 Nonrheumatic mitral (valve) insufficiency; F17.200 Nicotine dependence, unspecified, uncomplicated
CPT/HCPCS: 36415; 36600; 70450-TC; 70553-TC; 71045-TC; 71250-TC; 75574; 80048-TC; 80053-TC; 80061-TC; 80076-TC; 80202-TC; 80305; 81000-TC; 82550-TC; 82553-TC; 82803-TC; 83605-TC; 83735-TC; 83880; 84100-TC; 84443-TC; 84484-TC; 85025-TC; 85730-TC; 87040-TC; 87070-TC; 87081-TC; 87086-TC; 87400; 89051-TC; 93307-TC; 93970-TC; 95819-TC; A4216; A4606; A6403; C9113; G0480; J0696; J1100; J1630; J1644; J1650; J1940; J1956; J2060; J2310; J2405; J2543; J3370; J3475; J3490; J7030; J7050; J7060; Q9967; Z7610